=== PATIENT | female | born 1995 | race Caucasian/White ===

== ENCOUNTER 2016-10-15 23:10 | Emergency (ER) | payer SELFPAY ==
--- NOTE | 2016-10-15 23:50 | PDOC ---
History of Present Illness - General History Source: Patient Exam Limitations: No Limitations - History of Present Illness Initial Comments: 10/16/16 00:11 The patient is a 21 year old female with a significant past medical history of asthma, presenting to the Emergency Department with rash to upper body for three days. The patient reports that three days ago she noticed a red rash to her chest and shoulders, which has spread to her sides, back, and thighs over the past three days. She describes the rash as itchy, but not warm or raised. She admits that her boyfriend does not have a rash. She denies previously having similar symptoms. She denies using any new skin or beauty products. The patient denies fever, chills, and cough. Patient denies nausea, vomiting, and diarrhea. Patient denies palpitations, chest pain, or shortness of breath. <Mellissa Burrows - Last Filed: 10/16/16 00:19> <Jing Hoffmann - Last Filed: 10/16/16 00:34> - General Chief Complaint: Rash Stated Complaint: HEADACHE,RASH Time Seen by Provider: 10/15/16 23:44 Past History <Mellissa Burrows - Last Filed: 10/16/16 00:19> - Past Medical History Asthma: Yes - Reproductive History (#): 1 Para: 0 - Immunization History Immunization Up to Date: Yes - Psycho/Social/Smoking Cessation Hx Suicidal Ideation: No Smoking History: Never smoked Have you smoked in the past 12 months: No Information on smoking cessation initiated: No Hx Alcohol Use: No Drug/Substance Use Hx: No Substance Use Type: None <Jing Hoffmann - Last Filed: 10/16/16 00:34> - Past Medical History Allergies/Adverse Reactions: Allergies Allergy/AdvReac Type Severity Reaction Status Date / Time No Known Allergies Allergy Verified 10/15/16 23:47 Home Medications: Ambulatory Orders NK [No Known Home Medication] 05/14/15 Review of Systems - Review of Systems Able to Perform ROS?: Yes Comments:: 10/16/16 00:12 GENERAL/CONSTITUTIONAL: No fever or chills. No weakness. HEAD, EYES, EARS, NOSE AND THROAT: No change in vision. No ear pain or discharge. No sore throat. CARDIOVASCULAR: No chest pain or shortness of breath. RESPIRATORY: No cough, wheezing, or hemoptysis. GASTROINTESTINAL: No nausea, vomiting, diarrhea or constipation. GENITOURINARY: No dysuria, frequency, or change in urination. MUSCULOSKELETAL: No joint or muscle swelling or pain. No neck or back pain. SKIN: + red rash to chest, back and sides. NEUROLOGIC: No headache, vertigo, loss of consciousness, or change in strength/ sensation. ENDOCRINE: No increased thirst. No abnormal weight change. HEMATOLOGIC/LYMPHATIC: No anemia, easy bleeding, or history of blood clots. ALLERGIC/IMMUNOLOGIC: No hives or skin allergy. <Mellissa Burrows - Last Filed: 10/16/16 00:19> *Physical Exam - Vital Signs Last Vital Signs Temp Pulse Resp BP Pulse Ox 97.8 F 89 20 105/67 98 10/15/16 23:48 10/15/16 23:48 10/15/16 23:48 10/15/16 23:48 10/15/16 23:48 - Physical Exam Comments: 10/16/16 00:19 GENERAL: Awake, alert, and fully oriented, in no acute distress HEAD: No signs of trauma EYES: PERRLA, EOMI, sclera anicteric, conjunctiva clear ENT: Auricles normal inspection, hearing grossly normal, nares patent, oropharynx clear without exudates. Moist mucosa NECK: Normal ROM, supple, no lymphadenopathy, JVD, or masses EXTREMITIES: Normal range of motion, no edema. No clubbing or cyanosis. No cords, erythema, or tenderness NEUROLOGICAL: Cranial nerves II through XII grossly intact. Normal speech, normal gait SKIN: Small red subcentimeter patches in a martinez tree distribution to upper body. Warm, Dry, normal turgor, no lesions noted. <Mellissa Burrows - Last Filed: 10/16/16 00:19> - Vital Signs Last Vital Signs Temp Pulse Resp BP Pulse Ox 97.8 F 89 20 105/67 98 10/15/16 23:48 10/15/16 23:48 10/15/16 23:48 10/15/16 23:48 10/15/16 23:48 <Jing Hoffmann - Last Filed: 10/16/16 00:34> Medical Decision Making - Medical Decision Making 10/16/16 00:33 Pt comes with trunk rash x 2 days. Now spreading to her thighs. Itchy, but not hives and not infected. Looks like pityriasis rosea. Follow with PMD. <Jing Hoffmann - Last Filed: 10/16/16 00:34> *DC/Admit/Observation/Transfer - Attestations Scribe Attestion: 10/16/16 00:22 Documentation prepared by Mellissa Burrows, acting as medical coding instructor for Jing Hoffmann MD. <Mellissa Burrows - Last Filed: 10/16/16 00:19> - Discharge Dispostion Admit: No <Jing Hoffmann - Last Filed: 10/16/16 00:34> Diagnosis at time of Disposition: Pityriasis rosea - Discharge Dispostion Disposition: HOME Condition at time of disposition: Stable - Patient Instructions Printed Discharge Instructions: DI for Pityriasis Rosea
[2016-10-16 00:07] VITALS: BP 105/67; PULSE 89; TEMP 97.8; BMI 19.3
== END 2016-10-16 00:42 | disposition home or self-care (01) ==
LOC: JER 23:10
DX: L42 Pityriasis rosea (principal)
CPT/HCPCS: 99281-25

== ENCOUNTER 2017-01-23 10:31 | Emergency (ER) | payer OTHER ==
[2017-01-23 10:36] VITALS: BMI 19.3
[2017-01-23] MEDS ORDERED: ACETAMINOPHEN 500 MG TABLET (FP) PO ONE (10:53)
[2017-01-23 10:58] LABS: URINE APPEARANCE SLCLOUDY; URINE BILIRUBIN NEGATIVE (NEGATIVE); URINE BLOOD 1+ (NEGATIVE); URINE COLOR YELLOW; URINE GLUCOSE (UA) NEGATIVE (NEGATIVE); URINE KETONE TRACE (NEGATIVE); URINE LEUK ESTERASE 2+ (NEGATIVE); URINE NITRITE NEGATIVE (NEGATIVE); URINE PROTEIN 1+ (NEGATIVE); URINE UROBILINOGEN 2.0 E.U/dl E.U./dl (0.2-1.0)
[2017-01-23] MEDS ORDERED: ACETAMINOPHEN 325 MG TABLET (FP) ONE (11:01)
[2017-01-23 11:08] LABS: URINE MUCUS RARE; URINE RBC 32 /hpf (0-3); URINE WBC 121 /hpf (3-5)
[2017-01-23 11:15] LABS: BASOPHIL 0.3 % (0-2.0); EOSINOPHIL 0.8 % (0-4.5); MCH 29.6 pg (25.7-33.7); MCHC 33.4 g/dl (32.0-36.0); MEAN CELL VOLUME 88.8 fl (80-96); MEAN PLT VOLUME 7.8 fl (7.5-11.1); NEUTROPHILS 70.6 % (42.8-82.8); PLATELET COUNT 209 K/MM3 (134-434); RDW 13.4 % (11.6-15.6); WHITE BLOOD COUNT 6.3 K/mm3 (4.0-10.0)
[2017-01-23 11:38] LABS: ALBUMIN 3.9 g/dl (3.4-5.0); ALK PHOS 57 U/L (45-117); ANION GAP 6 (8-16); BILIRUBIN,TOTAL 0.6 mg/dL (0.2-1.0); CALCIUM 8.7 mg/dL (8.5-10.1); CO2 30 mmol/L (21-32); CREATININE 0.5 mg/dL (0.55-1.02); GLUCOSE,RANDOM 87 mg/dL (74-106); SGOT/AST 20 U/L (15-37); SGPT/ALT 30 U/L (12-78); TOT PROT 7.5 g/dl (6.4-8.2)
--- NOTE | 2017-01-23 11:57 | PDOC ---
History of Present Illness - General Chief Complaint: Urinary Problem Stated Complaint: r/o pyelonephritis Time Seen by Provider: 01/23/17 10:37 History Source: Patient Exam Limitations: No Limitations - History of Present Illness Travel History: No Initial Comments: 01/23/17 10:50 21-year-old female present to the ED with complaints of 4 days of suprapubic pressure and urinary frequency with without fever but states today he felt pain radiating now to her right flank area associated with chills. Patient denies history of UTIs, vaginal discharge, irregular menses, or recent illness. Patient states no medical history and did not seek medical care for the symptoms above. Patient states LMP was approximately 2 weeks ago. Timing/Duration: reports: getting worse Quality: reports: moderate, fullness Abdominal Pain Onset Location: reports: suprapubic, flank (rt) Pain Radiation: reports: no radiation Activities at Onset: reports: none Aggravating Factors: improves with: None Alleviating Factors: improves with: None Past History - Past Medical History Allergies/Adverse Reactions: Allergies Allergy/AdvReac Type Severity Reaction Status Date / Time No Known Allergies Allergy Verified 01/23/17 10:32 Home Medications: Ambulatory Orders NK [No Known Home Medication] 05/14/15 Asthma: Yes Other medical history: cerbral palsy - Reproductive History (#): 1 Para: 0 - Immunization History Immunization Up to Date: Yes - Psycho/Social/Smoking Cessation Hx Anxiety: No Suicidal Ideation: No Smoking History: Never smoked Have you smoked in the past 12 months: No Information on smoking cessation initiated: No Hx Alcohol Use: No Drug/Substance Use Hx: No Substance Use Type: None Review of Systems - Review of Systems Able to Perform ROS?: No Is the patient limited Ukrainian proficient: No Constitutional: Yes: Chills HEENTM: No: Symptoms Reported Respiratory: No: Symptoms reported Cardiac (ROS): No: Symptoms Reported ABD/GI: Yes: Abdominal cramping : Yes: Dysuria, Flank Pain Musculoskeletal: No: Symptoms Reported Integumentary: No: Symptoms Reported Neurological: No: Headache *Physical Exam - Vital Signs Last Vital Signs Temp Pulse Resp BP Pulse Ox 98.4 F 90 18 101/64 100 01/23/17 10:33 01/23/17 10:33 01/23/17 10:33 01/23/17 10:33 01/23/17 10:33 - Physical Exam General Appearance: Yes: Nourished, Appropriately Dressed. No: Apparent Distress Respiratory/Chest: positive: Lungs Clear, Normal Breath Sounds. negative: Respiratory Distress, Accessory Muscle Use Cardiovascular: positive: Regular Rhythm, Regular Rate. negative: Murmur Female Pelvic Exam: positive: normal external exam Gastrointestinal/Abdominal: positive: Normal Bowel Sounds, Soft, Tenderness ( midsuprapubic and rt cva). negative: Distended Musculoskeletal: positive: CVA Tenderness (R) Extremity: positive: Normal Capillary Refill Integumentary: positive: Normal Color, Warm, Moist Neurologic: positive: Motor Strength 5/5 (ambulatory) ED Treatment Course - LABORATORY CBC & Chemistry Diagram: 01/23/17 11:09 01/23/17 11:09 - ADDITIONAL ORDERS Additional order review: Laboratory Results 01/23/17 01/23/17 11:09 10:41 Sodium 141 Potassium 3.9 Chloride 105 Carbon Dioxide 30 Anion Gap 6 L BUN 8 Creatinine 0.5 L Creat Clearance w eGFR > 60 Random Glucose 87 D Calcium 8.7 Total Bilirubin 0.6 D AST 20 ALT 30 Alkaline Phosphatase 57 Total Protein 7.5 Albumin 3.9 Urine Color Yellow Urine Appearance Slcloudy Urine pH 6.0 Urine Protein 1+ H Urine Glucose (UA) Negative Urine Ketones Trace H Urine Blood 1+ H Urine Nitrite Negative Urine Bilirubin Negative Urine Urobilinogen 2.0 e.u/dl H Ur Leukocyte Esterase 2+ H Urine RBC 32 Urine WBC 121 Ur Epithelial Cells Few Urine Mucus Rare Urine HCG, Qual Negative 01/23/17 11:09 RBC 4.42 MCV 88.8 MCHC 33.4 RDW 13.4 MPV 7.8 Neutrophils % 70.6 D Lymphocytes % 18.4 D Monocytes % 9.9 Eosinophils % 0.8 Basophils % 0.3 - RADIOLOGY Radiology Studies Ordered: Category Date Time Status KIDNEY / RENAL US [US] Stat Ultrasound 01/23/17 10:53 Completed - Medications Given in the ED: ED Medications Discontinued Medications Generic Name Dose Route Start Last Admin Trade Name Freq PRN Reason Stop Dose Admin Acetaminophen 975 mg 01/23/17 10:53 01/23/17 11:13 Tylenol - PO 01/23/17 10:54 975 mg ONCE ONE Administration Medical Decision Making - Medical Decision Making 01/23/17 10:58 Patient with chills, urinary frequency and dysuria along with flank pain. Pt concerning for pyelonephritis. Patient ordered for CBC, comp, urinalysis urine , Tylenol, and kidney ultrasound 01/23/17 11:59 Laboratory Tests 11/01/15 01/23/17 01/23/17 15:57 10:41 11:09 WBC 6.3 Hgb 13.1 Hct 39.3 Plt Count 209 Sodium Potassium Chloride Carbon Dioxide Anion Gap BUN Creatinine Random Glucose AST ALT Urine Protein 1+ H Urine Ketones Trace H Urine Blood 1+ H Urine Nitrite Negative Urine Urobilinogen 2.0 e.u/dl H Ur Leukocyte Esterase 2+ H Urine WBC 121 Urine HCG, Qual Negative Blood Type B POSITIVE Antibody Screen Negative 01/23/17 11:09 WBC Hgb Hct Plt Count Sodium 141 Potassium 3.9 Chloride 105 Carbon Dioxide 30 Anion Gap 6 L BUN 8 Creatinine 0.5 L Random Glucose 87 D AST 20 ALT 30 Urine Protein Urine Ketones Urine Blood Urine Nitrite Urine Urobilinogen Ur Leukocyte Esterase Urine WBC Urine HCG, Qual Blood Type Antibody Screen Ultrasound shows no hydronephrosis or acute findings. Patient will be discharged home with Bactrim. *DC/Admit/Observation/Transfer Diagnosis at time of Disposition: Pyelonephritis - Discharge Dispostion Disposition: HOME Condition at time of disposition: Good - Patient Instructions Printed Discharge Instructions: DI for Kidney Infection Additional Instructions: Please take medication until completed. Please drink plenty of fluids. Please take Tylenol for discomfort or fever. If symptoms do not improve after completion of antibiotics or worsen during the course please return to the ED.
[2017-01-23 12:19] VITALS: BP 103/56; PULSE 70; TEMP 98.7
== END 2017-01-23 12:20 | disposition home or self-care (01) ==
LOC: JER 10:31
DX: N12 Tubulo-interstitial nephritis, not specified as acute or chronic (principal); G80.9 Cerebral palsy, unspecified
CPT/HCPCS: 36415; 76775-TC; 80053; 81003; 81015; 84703; 85025; 87086; 87186; 99283-25

== ENCOUNTER 2017-01-24 08:50 | Emergency (ER) | payer OTHER ==
[2017-01-24 08:57] VITALS: TEMP 98.9; BMI 19.3
--- NOTE | 2017-01-24 09:38 | PDOC ---
History of Present Illness - History of Present Illness Initial Comments: 01/24/17 18:46 Pt is a 21-year-old female with no past medical history who presents to the emergency department today complaining of worsening pain. Patient was seen in this ED yesterday and was diagnosed with pyelonephritis. Patient states that she has not taken any pain medication since leaving the department. 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 Patient admits to subjective fevers, back pain, urinary frequency, hematuria. Denies nausea, vomiting, chills, constipation, diarrhea, malaise and weakness. <Amy Saravia - Last Filed: 01/24/17 18:46> <Stacia Mckoy - Last Filed: 01/25/17 10:03> - General Chief Complaint: Urinary Problem Stated Complaint: abd pain REVISIT/ SIDE PAIN Time Seen by Provider: 01/24/17 09:16 Past History - Travel Traveled outside of the country in the last 30 days: No Close contact w/someone who was outside of country & ill: No - Past Medical History Asthma: Yes - Reproductive History (#): 1 Para: 0 - Immunization History Immunization Up to Date: Yes - Psycho/Social/Smoking Cessation Hx Anxiety: No Suicidal Ideation: No Smoking History: Never smoked Have you smoked in the past 12 months: No Information on smoking cessation initiated: No Hx Alcohol Use: No Drug/Substance Use Hx: No Substance Use Type: None <Amy Saravia - Last Filed: 01/24/17 18:46> <Stacia Mckoy - Last Filed: 01/25/17 10:03> - Past Medical History Allergies/Adverse Reactions: Allergies Allergy/AdvReac Type Severity Reaction Status Date / Time No Known Allergies Allergy Verified 01/24/17 08:54 Home Medications: Ambulatory Orders Sulfamethoxazole/Trimethoprim [Bactrim Ds -] 1 tab PO DAILY #28 tablet 01/23/17 Acetaminophen [Tylenol] 325 mg PO Q4HWA #24 tablet 01/24/17 Review of Systems - Review of Systems Constitutional: Yes: Fever. No: Chills, Malaise, Weakness ABD/GI: No: Diarrhea, Nausea, Vomiting : Yes: Burning, Dysuria, Frequency, Hematuria. No: Discharge, Flank Pain All Other Systems: Reviewed and Negative <RaniSandraAmy - Last Filed: 01/24/17 18:46> *Physical Exam - Vital Signs Last Vital Signs Temp Pulse Resp BP Pulse Ox 98.9 F 92 H 18 98/64 100 01/24/17 08:54 01/24/17 08:54 01/24/17 08:54 01/24/17 08:54 01/24/17 08:54 - Physical Exam General Appearance: Yes: Nourished, Appropriately Dressed, Mild Distress ( holding low back.), Other (sitting on exam bed, breathing easily, AAOx3) Respiratory/Chest: positive: Lungs Clear, Normal Breath Sounds. negative: Respiratory Distress, Accessory Muscle Use Cardiovascular: positive: Regular Rhythm, Regular Rate, S1, S2 (present). negative: Murmur Gastrointestinal/Abdominal: positive: Normal Bowel Sounds, Flat, Soft. negative : Tender, Organomegaly Musculoskeletal: positive: CVA Tenderness (R), CVA Tenderness (L) (worse than right) Integumentary: positive: Normal Color, Dry, Warm Neurologic: positive: kiln setter II-XII NML intact, Fully Oriented, Alert, Normal Mood/ Affect, Normal Response, Motor Strength 5/5 <JuanAmy hardy - Last Filed: 01/24/17 18:46> - Vital Signs Last Vital Signs Temp Pulse Resp BP Pulse Ox 98.9 F 90 20 100/78 100 01/24/17 08:54 01/24/17 12:33 01/24/17 12:33 01/24/17 12:33 01/24/17 12:33 <Stacia Mckoy - Last Filed: 01/25/17 10:03> ED Treatment Course - Medications Given in the ED: ED Medications Discontinued Medications Generic Name Dose Route Start Last Admin Trade Name Freq PRN Reason Stop Dose Admin Acetaminophen 650 mg 01/24/17 09:40 01/24/17 09:48 Tylenol - PO 01/24/17 09:41 650 mg ONCE ONE Administration <Stacia Mckoy - Last Filed: 01/25/17 10:03> Medical Decision Making - Medical Decision Making 01/24/17 09:09 Pt is a 21-year-old female with no past medical history who presents to the emergency department today complaining of worsening pain. Patient was seen in this ED yesterday and was diagnosed with pyelonephritis. Since patient is not taking pain medications since yesterday we will give her some Tylenol and see how she does. Patient's prescription of Bactrim states she is only taking it once a day but she was dispensed 20 pills. We'll confirm with pharmacy to to see the accurate prescription. Patient should be taking Bactrim twice daily for 14 days. We'll give patient fluids and reevaluate. 1. Repeat UA 01/24/17 09:54 Repeat UA is unchanged from yesterday. Confirmed with pharmacy the patient only got 14 pills and is taking the medication once daily. Will double his prescriptions that she is taking it twice daily. Reassured the patient that she will not feel well the next couple of days by she should start to get better within the next 48 hours. Instructed patient to take Tylenol for pain every 4-6 hours not to exceed 4 g of Tylenol per day. Patient feels better after fluids and Tylenol we'll discharge home at this time. All questions were answered and patient understands all discharge instructions. <Amy Saravia - Last Filed: 01/24/17 18:46> *DC/Admit/Observation/Transfer - Discharge Dispostion Admit: No <Amy Saravia - Last Filed: 01/24/17 18:46> - Attestations Physician Attestion: I reviewed the case with the mid-level practitioner and agree with the mid- level practitioner's assessment, diagnosis and disposition. <Stacia Mckoy - Last Filed: 01/25/17 10:03> Diagnosis at time of Disposition: Pyelonephritis - Discharge Dispostion Disposition: HOME Condition at time of disposition: Improved - Prescriptions Prescriptions: Acetaminophen [Tylenol] 325 mg PO Q4HWA #24 tablet - Patient Instructions Printed Discharge Instructions: DI for Urinary Tract Infection (UTI) Additional Instructions: You have a kidney infection caused by a urinary tract infection. Continue taking your antibiotics as prescribed. You should be taking 1 bactrium tablet DS (trimethoprim/sulfamethoxazole) every 12 hours or twice a day. Drink plenty of fluids. Water will help to flush the infection. Take Tylenol as needed for pain no more than 4000mg per day. Finish your antibiotics even if you are feeling better. Return to the ED if you have worsening pain not made better by tylenol, high fevers, cannot pass urine or if there are any changes in your symptoms.
[2017-01-24] MEDS ORDERED: ACETAMINOPHEN 325 MG TABLET (FP) PO ONE (09:40)
[2017-01-24] MEDS ORDERED: ACETAMINOPHEN 325 MG TABLET (FP) ONE (09:49)
[2017-01-24 11:07] LABS: URINE APPEARANCE SLCLOUDY; URINE BILIRUBIN NEGATIVE (NEGATIVE); URINE COLOR YELLOW; URINE GLUCOSE (UA) NEGATIVE (NEGATIVE); URINE KETONE 1+ (NEGATIVE); URINE NITRITE NEGATIVE (NEGATIVE); URINE PROTEIN NEGATIVE (NEGATIVE); URINE UROBILINOGEN 2.0 E.U/dl E.U./dl (0.2-1.0)
[2017-01-24 11:08] LABS: URINE BLOOD 3+ (NEGATIVE); URINE LEUK ESTERASE 2+ (NEGATIVE)
[2017-01-24 11:29] LABS: URINE MUCUS RARE; URINE RBC 121 /hpf (0-3); URINE WBC 213 /hpf (3-5)
[2017-01-24 12:35] VITALS: BP 100/78; PULSE 90
== END 2017-01-24 12:35 | disposition home or self-care (01) ==
LOC: JER 08:50
DX: N12 Tubulo-interstitial nephritis, not specified as acute or chronic (principal)
CPT/HCPCS: 81003; 81015; 84703; 99281-25

== ENCOUNTER 2017-02-01 02:01 | Emergency (ER) | payer OTHER ==
[2017-02-01 02:24] VITALS: BP 100/67; PULSE 77; TEMP 98.3; BMI 19.3
--- NOTE | 2017-02-01 02:25 | PDOC ---
Attending Attestation - Resident Resident Name: Stephanie Goel - ED Attending Attestation I have performed the following: I have examined & evaluated the patient, The case was reviewed & discussed with the resident, I agree w/resident's findings & plan, Exceptions are as noted - HPI HPI: 21 yo F no significant PMH presents with B/L flank pain. She was recently treated for UTI, has been on Bactrim for 1 week. She denies fever, chills. She states that her dysuria has resolved, but she still has blank pain that is worsening, not resolving. No vomiting. - Physicial Exam PE: GENERAL: Awake, alert, and fully oriented, in no acute distress. Appears uncomfortable. HEAD: No signs of trauma EYES: PERRLA, EOMI, sclera anicteric, conjunctiva clear ENT: Auricles normal inspection, hearing grossly normal, nares patent, oropharynx clear without exudates. Dry mucosa NECK: Normal ROM, supple, no lymphadenopathy, JVD, or masses LUNGS: Breath sounds equal, clear to auscultation bilaterally. No wheezes, and no crackles HEART: Regular rate and rhythm, normal S1 and S2, no murmurs, rubs or gallops ABDOMEN: Soft, +suprapubic tenderness with guarding. Normoactive bowel sounds. No rebound. No masses. +B/L CVAT. EXTREMITIES: Normal range of motion, no edema. No clubbing or cyanosis. No cords, erythema, or tenderness NEUROLOGICAL: Cranial nerves II through XII grossly intact. Normal speech, normal gait SKIN: Warm, Dry, normal turgor, no rashes or lesions noted. - Medical Decision Making Pt with recent treatment for UTI, now presents stating her dysuria has improved , but she still has B/L flank pain that is worsening. She has CVAT B/L with suprapubic tenderness. Either the infection was incompletely treated with the bactrim, or she may possibly have a nidus for infection (possibly a stone). Will obtain repeat UA/UCx, consider spiral CT.
[2017-02-01] MEDS ORDERED: LEVOFLOXACIN 750 MG IVPB 150 ML IVPB ONE ×2 (02:48→03:21)
[2017-02-01] MEDS ORDERED: KETOROLAC TROMETHAMINE 15 MG/ML VIAL IVPUSH ONE ×2 (03:05→05:02)
--- NOTE | 2017-02-01 03:05 | PDOC ---
History of Present Illness - General Chief Complaint: Pain, Acute Stated Complaint: PAIN/CHEST/RIGHT SIDED Time Seen by Provider: 02/01/17 02:05 - History of Present Illness Initial Comments: Healthy 21 year old female presenting with repeat episode of bilateral flank pain. She was in the ED one week ago with fever, suprapubic pain, and dysuria and diagnosed with pyelonephritis. She has been taking her Bactrim for the past 7 days BID with resolution of all symptoms except for with worsening of her bilateral flank pain. She has some nausea but no vomiting. Denies current fevers , chills, diarrhea, chest pain or other sick symptoms. 02/01/17 03:00 Past History - Past Medical History Allergies/Adverse Reactions: Allergies Allergy/AdvReac Type Severity Reaction Status Date / Time No Known Allergies Allergy Verified 02/01/17 02:08 Home Medications: Ambulatory Orders Sulfamethoxazole/Trimethoprim [Bactrim Ds -] 1 tab PO DAILY #28 tablet 01/23/17 Acetaminophen [Tylenol] 325 mg PO Q4HWA #24 tablet 01/24/17 Ibuprofen 600 mg PO Q6H PRN #30 tablet 02/01/17 Levofloxacin [Levaquin] 750 mg PO DAILY #4 tab 02/01/17 Asthma: Yes - Reproductive History (#): 1 Para: 0 - Immunization History Immunization Up to Date: Yes - Psycho/Social/Smoking Cessation Hx Anxiety: No Suicidal Ideation: No Smoking History: Never smoked Have you smoked in the past 12 months: No Hx Alcohol Use: No Drug/Substance Use Hx: No Substance Use Type: None Review of Systems - Review of Systems Constitutional: No: Chills, Diaphoresis, Fever, Loss of Appetite HEENTM: No: Blurred Vision, Recent change in vision Respiratory: No: Cough, Orthopnea, Shortness of Breath, SOB with Exertion Cardiac (ROS): No: Chest Pain, Edema, Irregular Heart Rate ABD/GI: Yes: Nausea. No: Constipated, Diarrhea, Poor Appetite, Vomiting, Indigestion : Yes: Flank Pain. No: Dysuria, Discharge, Hematuria, Incontinence, Urgency Musculoskeletal: Yes: Back Pain Neurological: No: Numbness, Paresthesia *Physical Exam - Vital Signs Last Vital Signs Temp Pulse Resp BP Pulse Ox 98.3 F 77 18 100/67 100 02/01/17 02:07 02/01/17 02:07 02/01/17 02:07 02/01/17 02:07 02/01/17 02:07 - Physical Exam General Appearance: Yes: Nourished, Appropriately Dressed, Mild Distress HEENT: positive: EOMI, ISAIAS, Normal Voice Neck: positive: Trachea midline. negative: Tender Respiratory/Chest: positive: Lungs Clear, Normal Breath Sounds. negative: Chest Tender, Respiratory Distress, Accessory Muscle Use Cardiovascular: positive: Regular Rhythm, Regular Rate, S1, S2, Edema. negative : JVD, Murmur Gastrointestinal/Abdominal: positive: Normal Bowel Sounds, Flat, Soft. negative : Tender, Organomegaly, Pulsatile Mass Musculoskeletal: positive: Normal Inspection Extremity: positive: Normal Capillary Refill, Normal Inspection Integumentary: positive: Normal Color, Dry, Warm Neurologic: positive: Fully Oriented, Alert, Normal Mood/Affect Medical Decision Making - Medical Decision Making Healthy 21 yo F with recent presentation for pyelonephritis treated with one week of Bactrim DS BID with remission of all symptoms except for worsening of bilateral flank pain. Most concerning is possible complicated pyelopnephritis or nephrolithiasis or combination of both. Will get UPreg, UA with culture and give 1 L NS with [address]. Will [address] scan after UPreg and UA return. 02/01/17 03:13 02/01/17 05:07 CT Abdomen/ Pelvis negative for any acute pathology or stone. Will redose Toradol 15 and send patient home with 600 Ibuprofen + Levaquin 750 x 4 more days. 02/01/17 05:44 Patient sleeping after Toradol 15 and ready to go home. *DC/Admit/Observation/Transfer Diagnosis at time of Disposition: Pyelonephritis - Discharge Dispostion Disposition: HOME Condition at time of disposition: Improved Admit: No - Prescriptions Prescriptions: Ibuprofen 600 mg PO Q6H PRN #30 tablet PRN Reason: Pain Levofloxacin [Levaquin] 750 mg PO DAILY #4 tab - Patient Instructions Additional Instructions: You were seen in the ED for pain in your back on both sides. We did not see any stones or other issues on your abdominal CT, we believe that this is probably a remaining infection of your kidneys. We have changed your antibiotics and given you some pain medication. Please take them both as prescribed and return if your pain does not get better in the next few days or if you get fevers, chills , nausea, vomiting, or other new symptoms. - Post Discharge Activity Work/School Note: Back to Work - Attestations Physician Attestion: 02/01/17 05:46 I, Dr. Stephanie Goel, attest that this document has been prepared under my direction and personally reviewed by me in its entirety. I further attest, that it accurately reflects all work, treatment, procedures and medical decision -making performed by me.
[2017-02-01] MEDS ORDERED: SODIUM CHLORIDE 0.9% 1000 ML INFUS.BAG IV ONE (03:11)
[2017-02-01] MEDS ORDERED: KETOROLAC TROMETHAMINE 15 MG/ML VIAL ONE ×2 (03:21→05:21)
[2017-02-01 03:48] LABS: URINE APPEARANCE CLEAR; URINE BILIRUBIN NEGATIVE (NEGATIVE); URINE BLOOD NEGATIVE (NEGATIVE); URINE COLOR STRAW; URINE GLUCOSE (UA) NEGATIVE (NEGATIVE); URINE KETONE NEGATIVE (NEGATIVE); URINE NITRITE NEGATIVE (NEGATIVE); URINE PROTEIN NEGATIVE (NEGATIVE); URINE UROBILINOGEN NEGATIVE mg/dL (0.2-1.0)
[2017-02-01 03:49] LABS: URINE LEUK ESTERASE TRACE (NEGATIVE)
[2017-02-01 03:50] LABS: URINE MUCUS RARE; URINE RBC 1 /hpf (0-3); URINE WBC 1 /hpf (3-5)
== END 2017-02-01 06:09 | disposition home or self-care (01) ==
LOC: JER 02:01
PROC: 3E03329 Introduction of Other Anti-infective into Peripheral Vein, Percutaneous Approach (ICD-10-PCS; principal; 2017-02-01)
PROC: 3E0333Z Introduction of Anti-inflammatory into Peripheral Vein, Percutaneous Approach (ICD-10-PCS; 2017-02-01)
PROC: 3E0333Z Introduction of Anti-inflammatory into Peripheral Vein, Percutaneous Approach (ICD-10-PCS; 2017-02-01)
DX: N12 Tubulo-interstitial nephritis, not specified as acute or chronic (principal)
CPT/HCPCS: 74176-TC; 81003; 81015; 84703; 87086; 96365; 96375; 99282-25

== ENCOUNTER 2018-05-14 03:33 | Emergency (ER) | payer OTHER ==
--- NOTE | 2018-05-14 03:48 | PDOC ---
History of Present Illness - General Stated Complaint: POSSIBLE MISCARRIAGE/17 WKS Time Seen by Provider: 05/14/18 03:47 History Source: Patient Exam Limitations: No Limitations - History of Present Illness Initial Comments: 05/14/18 03:47 Best Contact:[phone] PCP: Donal Dougherty Pmhx:0 Pshx:0 Allergies:nkda FH:0 Social Hx: Cigarettes/ 0 Alcohol/ 0 Drugs/0 LMP:04/19/2018 ( 2016 miscarriage ~8 weeks) 23-year-old female presents to the ER complaining of vaginal spotting with left- sided pelvic pain 2 hours without fever, chills, nausea/vomiting, headache, dizziness, lightheadedness, chest pain, shortness of breath, back pains, urinary symptoms: Frequency/urgency/hesitancy, hematuria. Patient last had her ultrasound 05/02/2018. Patient states everything was fine baby's heart rate was in the 160s Past History - Past Medical History Allergies/Adverse Reactions: Allergies Allergy/AdvReac Type Severity Reaction Status Date / Time No Known Allergies Allergy Verified 05/14/18 04:15 Home Medications: Ambulatory Orders Ondansetron HCl [Zofran] 4 mg PO PRN #20 tablet 03/06/18 Asthma: Yes COPD: No - Reproductive History (#): 1 Para: 0 - Immunization History Immunization Up to Date: Yes - Suicide/Smoking/Psychosocial Hx Smoking History: Never smoked Have you smoked in the past 12 months: No Hx Alcohol Use: No Drug/Substance Use Hx: No Substance Use Type: None Review of Systems - Review of Systems Able to Perform ROS?: Yes Comments:: 05/14/18 03:48 CONSTITUTIONAL: Absent: fever, chills, diaphoresis, generalized weakness, malaise, loss of appetite HEENT: Absent: rhinorrhea, nasal congestion, throat pain, throat swelling, difficulty swallowing, mouth swelling, ear pain, eye pain, visual Changes CARDIOVASCULAR: Absent: chest pain, loss of consciousness, palpitations, irregular heart rate, peripheral edema RESPIRATORY: Absent: cough, shortness of breath, dyspnea with exertion, orthopnea, wheezing, stridor, hemoptysis GASTROINTESTINAL: Absent: abdominal pain, abdominal distension, nausea, vomiting, diarrhea, constipation, melena, hematochezia GENITOURINARY: Absent: dysuria, frequency, urgency, hesitancy, hematuria, flank pain, genital pain MUSCULOSKELETAL: Absent: myalgia, arthralgia, joint swelling SKIN: Absent: rash, itching, pallor HEMATOLOGIC/IMMUNOLOGIC: Absent: easy bleeding, easy bruising, lymphadenopathy, frequent infections ENDOCRINE: Absent: unexplained weight gain, unexplained weight loss, heat intolerance, cold intolerance NEUROLOGIC: Absent: headache, focal weakness or paresthesias, dizziness, unsteady gait, seizure, mental status changes, bladder or bowel incontinence PSYCHIATRIC: Absent: anxiety, depression, suicidal or homicidal ideation, hallucinations. Is the patient limited Lithuanian proficient: No *Physical Exam - Physical Exam Comments: 05/14/18 03:48 GENERAL: Well developed, well nourished. Awake and alert. No acute distress. HEENT: Normocephalic, atraumatic. PERRLA, EOMI. No conjunctival pallor. Sclera are non- icteric. Moist mucous membranes. Oropharynx is clear. NECK: Supple. Full ROM. No JVD. Carotid pulses 2+ and symmetric, without bruits. No thyromegaly. No lymphadenopathy. CARDIOVASCULAR: Regular rate and rhythm. No murmurs, rubs, or gallops. Distal pulses are 2+ and symmetric. PULMONARY: No evidence of respiratory distress. Lungs clear to auscultation bilaterally. No wheezing, rales or rhonchi. ABDOMINAL: Soft. Non-tender. Non-distended. No rebound or guarding. No organomegaly. Normoactive bowel sounds. MUSCULOSKELETAL Normal range of motion at all joints. No bony deformities or tenderness. No CVA tenderness. EXTREMITIES: No cyanosis. No clubbing. No edema. No calf tenderness. SKIN: Warm and dry. Normal capillary refill. No rashes. No jaundice. NEUROLOGICAL: Alert, awake, appropriate. Cranial nerves 2-12 intact. No deficits to light touch and temperature in face, upper extremities and lower extremities. No motor deficits in the in face, upper extremities and lower extremities. Normoreflexic in the upper and lower extremities. Normal speech. Toes are down- going bilaterally. Gait is normal without ataxia. PSYCHIATRIC: Cooperative. Good eye contact. Appropriate mood and affect. 05/14/18 04:21 Pelvic: External genitalia normal without lesions. Vaginal vault is clear without blood or discharge. Cervix is long and closed. ED Treatment Course - LABORATORY CBC & Chemistry Diagram: 05/14/18 04:09 05/14/18 04:09 - RADIOLOGY Radiograph Interpretation: 05/14/18 06:05 Transvaginal ultrasound Cervix is 3.8 cm in length and closed. There is a live intrauterine with estimated age 17 weeks and 6 days and cephalic presentation. There is an anterior placenta without previa or abruption. Normal amount of amniotic fluid for age. Normal heart rate of 163 bpm. *DC/Admit/Observation/Transfer Diagnosis at time of Disposition: Threatened - Discharge Dispostion Disposition: HOME Condition at time of disposition: Fair Decision to Admit order: No - Referrals Referrals: Apple Klein MD [Staff Physician] - - Patient Instructions Printed Discharge Instructions: DI for Threatened Additional Instructions: Your transvaginal ultrasound this morning shows that your cervix is 3.8 cm in length and closed. There is a live intrauterine with estimated age 17 weeks and 6 days and cephalic presentation. There is an anterior placenta without previa or abruption. Normal amount of amniotic fluid for age. Normal heart rate of 163 bpm. 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
[2018-05-14 04:15] VITALS: BMI 19.8
[2018-05-14 04:34] LABS: BASO % 0.2 % (0-2.0); EOS % 1.5 % (0-4.5); HEMATOCRIT 32.6 % (32.4-45.2); HEMOGLOBIN 11.2 GM/dL (10.7-15.3); LYMPH % 29.7 % (8-40); MCH 30.4 pg (25.7-33.7); MCHC 34.4 g/dl (32.0-36.0); MEAN CELL VOLUME 88.3 fl (80-96); MEAN PLT VOLUME 7.9 fl (7.5-11.1); MONO % 7.5 % (3.8-10.2); NEUT % 61.1 % (42.8-82.8); PLATELET COUNT 248 K/MM3 (134-434); RBC 3.68 M/mm3 (3.60-5.2); RDW 14.1 % (11.6-15.6); WHITE BLOOD COUNT 6.8 K/mm3 (4.0-10.0)
[2018-05-14 04:37] LABS: URINE APPEARANCE CLEAR; URINE BILIRUBIN NEGATIVE (<2.0 mg/dL); URINE COLOR STRAW; URINE GLUCOSE (UA) NEGATIVE (NEGATIVE); URINE KETONE NEGATIVE (NEGATIVE); URINE LEUK ESTERASE 1+ (NEGATIVE); URINE NITRITE NEGATIVE (NEGATIVE); URINE PROTEIN NEGATIVE (NEGATIVE); URINE UROBILINOGEN NEGATIVE mg/dL (0.2-1.0)
[2018-05-14 04:55] LABS: ALBUMIN 3.2 g/dl (3.4-5.0); ALK PHOS 64 U/L (45-117); ANION GAP 7 MMOL/L (8-16); BILIRUBIN,TOTAL 0.2 mg/dL (0.2-1); BLOOD UREA NITROGEN 7 mg/dL (7-18); CALCIUM 8.9 mg/dL (8.5-10.1); CHLORIDE 103 mmol/L (98-107); CO2 26 mmol/L (21-32); CREATININE 0.3 mg/dL (0.55-1.3); GLUCOSE,RANDOM 74 mg/dL (74-106); POTASSIUM 3.7 mmol/L (3.5-5.1); SGOT/AST 22 U/L (15-37); SGPT/ALT 23 U/L (13-61); SODIUM 136 mmol/L (136-145)
[2018-05-14 04:58] LABS: EPI CELLS RARE /HPF (FEW); URINE BACTERIA RARE /hpf (NONE SEEN)
[2018-05-14 05:01] VITALS: BP 110/60; PULSE 82; TEMP 98.1
== END 2018-05-14 06:18 | disposition home or self-care (01) ==
LOC: JER 03:33
DX: O26.892 Other specified pregnancy related conditions, second trimester (principal); O20.0 Threatened abortion; Z3A.17 17 weeks gestation of pregnancy
CPT/HCPCS: 36415; 76815-TC; 80053; 81003; 81015; 84702; 85025; 86850; 86900; 86901; 99283-25

== ENCOUNTER 2018-07-04 18:32 | Emergency (ER) | payer OTHER ==
[2018-07-04 18:53] VITALS: BP 96/60; PULSE 99; TEMP 98.5; BMI 20.9
--- NOTE | 2018-07-04 19:03 | PDOC ---
Rapid Medical Evaluation Chief Complaint: Shortness of Breath Medical Evaluation: Allergies Allergy/AdvReac Type Severity Reaction Status Date / Time No Known Allergies Allergy Verified 07/04/18 18:50 07/04/18 18:52 I have performed a brief in-person evaluation of this patient. The patient presents with a chief complaint of:24 weeks preg, SOB/ wheezing , baby not moving as much today Pertinent physical exam findings: lungs Clear, I have ordered the following: nothing .. will be taken to [facility] for check The patient will proceed to the ED for further evaluation. Discharge Disposition - Diagnosis SOB (shortness of breath) - Referrals - Patient Instructions - Post Discharge Activity
[2018-07-04] MEDS ORDERED: ALBUTEROL SO4 0.083% IH SOL 2.5 MG/3 ML VIAL.NEB. NEB ONE ×2 (20:50→21:06)
[2018-07-04] MEDS ORDERED: SODIUM CHLORIDE 1,000 ML IV STA (20:50)
--- NOTE | 2018-07-04 21:02 | PDOC ---
History of Present Illness - General Chief Complaint: Shortness of Breath Stated Complaint: 24 WEEKS Shortness of Breath Time Seen by Provider: 07/04/18 20:46 History Source: Patient - History of Present Illness Initial Comments: 07/04/18 20:51 23 year old female 24 weeks with history of asthma and "anxiety" reports that when she was walking outside yesterday felt shortness of breath, wheezing and chest tightness denies pleuritic pain now reports slight tightness to chest. did not take a treatment at home. denies vgainal bleeding, NVD, abdominal pain/ cramping. reports decreased movement today 07/04/18 22:28 Past History - Past Medical History Allergies/Adverse Reactions: Allergies Allergy/AdvReac Type Severity Reaction Status Date / Time No Known Allergies Allergy Verified 07/04/18 19:50 Home Medications: Ambulatory Orders Albuterol 0.083% Nebulizer Yolette [Ventolin 0.083% Nebulizer Soln -] 1 neb NEB Q6H PRN #30 vial 07/04/18 Nebulizer [Aeroeclipse II] 1 each MC Q6H #6 each 07/04/18 No122/Iron/Folic Acid [ Multi Tablet] 1 each PO DAILY 07/04/18 Asthma: Yes COPD: No - Reproductive History Is Patient Now?: Yes (#): 1 Para: 0 Therapeutic (s) & number: No Spontaneous : 0 - Immunization History Immunization Up to Date: Yes - Suicide/Smoking/Psychosocial Hx Smoking History: Never smoked Have you smoked in the past 12 months: No Hx Alcohol Use: No Drug/Substance Use Hx: No Substance Use Type: None Review of Systems - Review of Systems Able to Perform ROS?: Yes Is the patient limited Turkmen proficient: No Constitutional: No: Symptoms Reported, See HPI, Chills, Diaphoresis, Fever, Loss of Appetite, Malaise, Night Sweats, Weakness, Weight Stable, Unintentional Wgt. Loss, Unexplained wgt Loss, Other HEENTM: No: Symptoms Reported, See HPI, Eye Pain, Blurred Vision, Tearing, Recent change in vision, Double Vision, Cataracts, Ear Pain, Ocular Prothesis, Ear Discharge, Nose Pain, Nose Congestion, Tinnitus, Nose Bleeding, Hearing Loss , Throat Pain, Throat Swelling, Mouth Pain, Dental Problems, Difficulty Swallowing, Mouth Swelling, Other Respiratory: Yes: Shortness of Breath, Other (chest tightness) *Physical Exam - Vital Signs Last Vital Signs Temp Pulse Resp BP Pulse Ox 98.5 F 99 H 20 96/60 99 07/04/18 18:51 18 18:51 07/04/18 18:51 07/04/18 18:51 07/04/18 19:20 Moderate Sedation - Procedure Monitoring Vital Signs: Procedure Monitoring Vital Signs Temperature 98.5 F 07/04/18 18:51 Pulse Rate 99 H 07/04/18 18:51 Respiratory Rate 20 07/04/18 18:51 Blood Pressure 96/60 07/04/18 18:51 O2 Sat by Pulse Oximetry (%) 99 07/04/18 19:20 ED Treatment Course - LABORATORY CBC & Chemistry Diagram: 07/04/18 21:20 07/04/18 21:20 Medical Decision Making - Medical Decision Making 07/04/18 21:39 patient now feels better after albuterol dose. will await labs. once d/romario in the ED patient to be cleared by Ob. patient reports minimal movements by baby today 07/04/18 22:28 patient was evaluated by L&D nurse doppler done at bedside Heart rate 140- 50bpm patient cleared for d/c by L&D 07/04/18 22:29 *DC/Admit/Observation/Transfer Diagnosis at time of Disposition: Asthma Qualifiers: Asthma severity: mild Asthma persistence: intermittent Asthma complication type : uncomplicated Qualified Code(s): J45.20 - Mild intermittent asthma, uncomplicated Qualifiers: Weeks of gestation: 24 weeks Qualified Code(s): Z3A.24 - 24 weeks gestation of - Discharge Dispostion Disposition: HOME - Prescriptions Prescriptions: Albuterol 0.083% Nebulizer Yolette [Ventolin 0.083% Nebulizer Soln -] 1 neb NEB Q6H PRN #30 vial PRN Reason: Wheezing Nebulizer [Aeroeclipse II] 1 each MC Q6H #6 each - Referrals - Patient Instructions Printed Discharge Instructions: DI for Asthma -- Adult Additional Instructions: use albuterol every 4- 6 hours for wheezing 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 - Post Discharge Activity Forms/Work/School Notes: Back to Work
[2018-07-04 21:29] LABS: BASO % 0.2 % (0-2.0); EOS % 1.2 % (0-4.5); HEMATOCRIT 31.1 % (32.4-45.2); HEMOGLOBIN 11.1 GM/dL (10.7-15.3); LYMPH % 16.1 % (8-40); MCH 31.6 pg (25.7-33.7); MCHC 35.6 g/dl (32.0-36.0); MEAN CELL VOLUME 88.7 fl (80-96); MEAN PLT VOLUME 7.8 fl (7.5-11.1); MONO % 9.5 % (3.8-10.2); PLATELET COUNT 256 K/MM3 (134-434); RBC 3.51 M/mm3 (3.60-5.2); RDW 13.4 % (11.6-15.6); WHITE BLOOD COUNT 11.6 K/mm3 (4.0-10.0)
[2018-07-04 21:49] LABS: URINE APPEARANCE CLEAR; URINE BILIRUBIN NEGATIVE (<2.0 mg/dL); URINE COLOR COLORLESS; URINE GLUCOSE (UA) NEGATIVE (NEGATIVE); URINE KETONE TRACE (NEGATIVE); URINE LEUK ESTERASE NEGATIVE (NEGATIVE); URINE NITRITE NEGATIVE (NEGATIVE); URINE PROTEIN NEGATIVE (NEGATIVE); URINE UROBILINOGEN NEGATIVE mg/dL (0.2-1.0)
[2018-07-04 22:03] LABS: ALBUMIN 2.9 g/dl (3.4-5.0); ALK PHOS 87 U/L (45-117); ANION GAP 7 MMOL/L (8-16); BILIRUBIN,TOTAL 0.3 mg/dL (0.2-1); BLOOD UREA NITROGEN 4 mg/dL (7-18); CHLORIDE 105 mmol/L (98-107); CO2 25 mmol/L (21-32); CREATININE 0.3 mg/dL (0.55-1.3); GLUCOSE,RANDOM 69 mg/dL (74-106); POTASSIUM 3.5 mmol/L (3.5-5.1); SGOT/AST 18 U/L (15-37); SGPT/ALT 13 U/L (13-61); SODIUM 137 mmol/L (136-145); TOT PROT 7.1 g/dl (6.4-8.2)
--- NOTE | 2018-07-05 00:16 | PDOC ---
*Physical Exam - Vital Signs Last Vital Signs Temp Pulse Resp BP Pulse Ox 98.5 F 99 H 20 96/60 99 07/04/18 18:51 07/04/18 18:51 07/04/18 18:51 07/04/18 18:51 07/04/18 19:20 ED Treatment Course - LABORATORY CBC & Chemistry Diagram: 07/04/18 21:20 07/04/18 21:20 - ADDITIONAL ORDERS Additional order review: Laboratory Results 07/04/18 07/04/18 21:30 21:20 Sodium 137 Potassium 3.5 Chloride 105 Carbon Dioxide 25 Anion Gap 7 L BUN 4 L Creatinine 0.3 L Creat Clearance w eGFR > 60 Random Glucose 69 L Calcium 8.0 L Total Bilirubin 0.3 AST 18 ALT 13 Alkaline Phosphatase 87 Total Protein 7.1 Albumin 2.9 L Urine Color Colorless Urine Appearance Clear Urine pH 8.0 D Ur Specific [place] 1.003 L Urine Protein Negative Urine Glucose (UA) Negative Urine Ketones Trace H Urine Blood Negative Urine Nitrite Negative Urine Bilirubin Negative Urine Urobilinogen Negative Ur Leukocyte Esterase Negative 07/04/18 21:20 RBC 3.51 L MCV 88.7 MCHC 35.6 RDW 13.4 MPV 7.8 Neutrophils % 73.0 Lymphocytes % 16.1 D Monocytes % 9.5 Eosinophils % 1.2 Basophils % 0.2 - Medications Given in the ED: ED Medications Discontinued Medications Generic Name Dose Route Start Last Admin Trade Name Freq PRN Reason Stop Dose Admin Albuterol Sulfate 1 amp 07/04/18 20:50 07/04/18 21:25 Ventolin 0.083% Nebulizer Soln - NEB 07/04/18 20:51 1 amp ONCE ONE Administration Sodium Chloride 1,000 mls @ 1,000 mls/hr 07/04/18 20:50 07/04/18 21:30 Normal Saline - IV 07/04/18 21:49 1,000 mls/hr ASDIR STA Administration Medical Decision Making - Medical Decision Making 07/05/18 00:14 I agree w ith the mid level providers's assessment and management of this case. 23 yo female p/w asthma exacerbation that resolved with bronchodilators treatment . doppler reveals FHT 140-150. Pt discharged home *DC/Admit/Observation/Transfer Diagnosis at time of Disposition: Asthma Qualifiers: Asthma severity: mild Asthma persistence: intermittent Asthma complication type : uncomplicated Qualified Code(s): J45.20 - Mild intermittent asthma, uncomplicated Qualifiers: Weeks of gestation: 24 weeks Qualified Code(s): Z3A.24 - 24 weeks gestation of - Discharge Dispostion Disposition: HOME - Prescriptions Prescriptions: Albuterol 0.083% Nebulizer Yolette [Ventolin 0.083% Nebulizer Soln -] 1 neb NEB Q6H PRN #30 vial PRN Reason: Wheezing Nebulizer [Aeroeclipse II] 1 each MC Q6H #6 each - Referrals - Patient Instructions Printed Discharge Instructions: DI for Asthma -- Adult Additional Instructions: use albuterol every 4- 6 hours for wheezing 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 - Post Discharge Activity Forms/Work/School Notes: Back to Work
== END 2018-07-04 23:20 | disposition home or self-care (01) ==
LOC: JER 18:32
PROC: 3E0337Z Introduction of Electrolytic and Water Balance Substance into Peripheral Vein, Percutaneous Approach (ICD-10-PCS; principal; 2018-07-04)
PROC: 3E0F7GC Introduction of Other Therapeutic Substance into Respiratory Tract, Via Natural or Artificial Opening (ICD-10-PCS; 2018-07-04)
DX: O99.512 Diseases of the respiratory system complicating pregnancy, second trimester (principal); J45.20 Mild intermittent asthma, uncomplicated; Z3A.24 24 weeks gestation of pregnancy
CPT/HCPCS: 36415; 80053; 81003; 85025; 87086; 99282-25; J7030

== ENCOUNTER 2018-10-24 01:20 | Inpatient (IN) | payer OTHER ==
--- NOTE | 2018-10-24 01:48 | HP ---
Past Medical History - Admission Chief Complaint: Rupture of membrane History of Present Illness: 23 yo @ 40 weeks gestation, EDC 10/21/18, admitted for rupture of membrane. Upon admission there was gross pooling but cervix was closed. Patient denies any contractions pain. History Source: Patient Limitations to Obtaining History: No Limitations - Past Medical History ...: 1 ...Para: 0 ...EDC by Dates: 10/21/18 ...EDC by Sono: 10/23/18 - Past Surgical History Past Surgical History: Yes: None Hx Myomectomy: No Hx Transabdominal Cerclage: No - Smoking History Smoking history: Never smoked Have you smoked in the past 12 months: No - Alcohol/Substance Use Hx Alcohol Use: No Home Medications - Allergies Allergies/Adverse Reactions: Allergies Allergy/AdvReac Type Severity Reaction Status Date / Time Latex, Natural Rubber Allergy Intermediate Rash Verified 10/13/18 20:35 - Home Medications Home Medications: Ambulatory Orders Albuterol 0.083% Nebulizer Yolette [Ventolin 0.083% Nebulizer Soln -] 1 neb NEB Q6H PRN #30 vial 07/04/18 Nebulizer [Aeroeclipse II] 1 each MC Q6H #6 each 07/04/18 No122/Iron/Folic Acid [ Multi Tablet] 1 each PO DAILY 07/04/18 Family Disease History - Family Disease History Family History: Unremarkable Review of Systems - Review of Systems Constitutional: reports: No Symptoms Eyes: reports: No Symptoms HENT: reports: No Symptoms Neck: reports: No Symptoms Cardiovascular: reports: No Symptoms Respiratory: reports: No Symptoms Gastrointestinal: reports: No Symptoms Genitourinary: reports: Other (Leakage of fluid) Musculoskeletal: reports: No Symptoms Integumentary: reports: No Symptoms Neurological: reports: No Symptoms Endocrine: reports: No Symptoms Hematology/Lymphatic: reports: No Symptoms Pain Intensity: 0 Physical Exam - Maternity Constitutional: Yes: Well Nourished Eyes: Yes: Conjunctiva Clear HENT: Yes: Atraumatic Neck: Yes: Supple Cardiovascular: Yes: Regular Rate and Rhythm Lungs: Clear to auscultation Breast(s): Yes: WNL - Abdominal Exam/OB Number of Fetuses: Single Presentation: Vertex - Vaginal Exam/OB Vaginal Bleediing: No Amniotic Membrane Status: Ruptured Amniotic Fluid: Yes: Clear Presentation: Vertex/Position Station: -2 - Physical Exam Musculoskeletal: Yes: WNL Extremities: Yes: WNL Integumentary: Yes: WNL ...Motor Strength: WNL Psychiatric: Yes: Alert, Oriented Problem List - Problems (1) Spontaneous rupture of membranes Code(s): BYT9018 - Assessment/Plan 40 weeks gestation SROM Admit to L&D Consider cervidil induction
[2018-10-24] MEDS: DEXTROSE 5%-LACTATED RINGERS 1,000 ML IV SCH ×3 (02:00→18:00)
[2018-10-24 02:17] LABS: BASO % 0.4 % (0-2.0); EOS % 0.7 % (0-4.5); HEMATOCRIT 31.4 % (32.4-45.2); HEMOGLOBIN 10.7 GM/dL (10.7-15.3); LYMPH % 30.5 % (8-40); MCH 28.4 pg (25.7-33.7); MEAN CELL VOLUME 83.6 fl (80-96); MEAN PLT VOLUME 10.1 fl (7.5-11.1); MONO % 8.7 % (3.8-10.2); NEUT % 59.7 % (42.8-82.8); PLATELET COUNT 198 K/MM3 (134-434); RBC 3.76 M/mm3 (3.60-5.2); WHITE BLOOD COUNT 8.9 K/mm3 (4.0-10.0)
[2018-10-24 02:31] LABS: INR 0.91 (0.83-1.09); PROTHROMBIN TIME (PATIENT) 10.7 SEC (9.7-13.0)
[2018-10-24 02:35] LABS: ANION GAP 7 MMOL/L (8-16); BLOOD UREA NITROGEN 8 mg/dL (7-18); CALCIUM 8.6 mg/dL (8.5-10.1); CHLORIDE 107 mmol/L (98-107); CO2 22 mmol/L (21-32); CREATININE 0.4 mg/dL (0.55-1.3); GLUCOSE,RANDOM 72 mg/dL (74-106); POTASSIUM 3.9 mmol/L (3.5-5.1); SODIUM 136 mmol/L (136-145)
[2018-10-24 03:12] VITALS: BMI 25.4
[2018-10-24] MEDS ORDERED: TUBERCULIN PPD 5 TU/0.1ML SYRINGE (IN PATIENT USE ONLY) ID ONE (04:45)
--- NOTE | 2018-10-24 09:34 | PN ---
Progress Note (short form) - Note Progress Note: 9am cx 1 cm 50 vx -3 mr, clear fluid, fhr cat 1 tracing, irregular mild contraction, not felt by patient ,.pitocin vs cervidil discussed with patient, agreed to have cervidil, risks explain, cervidil inserted
[2018-10-24] MEDS ORDERED: DINOPROSTONE 10 MG VAGINAL SUPPOSITORY VG ONE (10:00)
[2018-10-24] MEDS ORDERED: BUTORPHANOL TARTRATE 2 MG/ML VIAL ONE ×2 (13:16→17:06)
[2018-10-24] MEDS ORDERED: PROMETHAZINE HCL 25 MG/1 ML VIAL ONE ×2 (13:17→17:06)
[2018-10-24] MEDS ORDERED: ALBUTEROL SO4 0.083% IH SOL 2.5 MG/3 ML VIAL.NEB. NEB PRN (13:27)
[2018-10-24] MEDS ORDERED: PROMETHAZINE HCL 25 MG/1 ML VIAL IVPUSH ONE (13:28)
[2018-10-24] MEDS ORDERED: BUTORPHANOL TARTRATE 1 MG/ML VIAL IVPUSH ONE (13:28)
--- NOTE | 2018-10-24 13:30 | PN ---
Progress Note (short form) - Note Progress Note: cx 2 cm , 80 vx -2 mr , fhr cat 1, contraction q i min, cervidil removed, if contraction space will start pitocin
[2018-10-24] MEDS ORDERED: OXYTOCIN 30 UNITS in 0.9% NS 30 UNIT/500 ML INFUS.BAG IVPB ONE (15:05)
[2018-10-24] MEDS: OXYTOCIN 30 UNITS in 0.9% NS 30 UNIT/500 ML INFUS.BAG IVPB SCH (15:35)
[2018-10-24] MEDS ORDERED: PROMETHAZINE HCL 25 MG/1 ML VIAL IVPB ONE ×2 (17:30→17:45)
[2018-10-24] MEDS ORDERED: BUTORPHANOL TARTRATE 2 MG/ML VIAL IVPB ONE ×2 (17:30→17:45)
[2018-10-24] MEDS ORDERED: ELECTROLYTE-148 SOLN 1,000 ML IV SCH (18:45)
[2018-10-24] MEDS ORDERED: BUPIVACAINE HCL/PF 0.25% (2.5MG/ML) 10 ML VIAL ONE (18:52)
[2018-10-24] MEDS ORDERED: LIDO 2%/EPI 1:200000 PRESRVFRE (20 ML SDVIAL) ONE ×2 (18:53→22:51)
[2018-10-24] MEDS ORDERED: FENTANYL/BUPIVACAINE/NS/PF - PCEA - 50 ML DISP.SYRIN EP ONE (18:54)
[2018-10-24] MEDS ORDERED: NALOXONE HCL 0.4 MG/ML VIAL IVPUSH PRN (19:18)
[2018-10-24] MEDS: FENTANYL/BUPIVACAINE/NS/PF - PCEA - 50 ML DISP.SYRIN EP SCH (19:30)
[2018-10-24] MEDS ORDERED: ePHEDrine SULFATE 50 MG/1 ML AMPULE ONE (19:59)
[2018-10-24] MEDS ORDERED: OXYTOCIN 20 UNITS in 0.9% NS 20 UNIT/1,000 ML INFUS.BAG IV ONE (20:28)
[2018-10-24] MEDS ORDERED: LIDOCAINE HCL 1% PRESERVATIVE FREE - 30ML VIAL ONE (21:52)
[2018-10-24] MEDS ORDERED: CEFAZOLIN 1 GM/D5W 2 GM/100 ML BAG ONE (22:22)
--- NOTE | 2018-10-24 22:24 | PN ---
Progress Note (short form) - Note Progress Note: has been pushing for 2 hours head large caput at 0 station, no descent with pushing , advised c/s, fhr cat 1, prolonged ROM
[2018-10-24] MEDS ORDERED: OXYTOCIN 10 UNITS/ML VIAL ONE (22:55)
[2018-10-24] MEDS ORDERED: ceFAZolin SODIUM 1 GM VIAL ONE (22:55)
[2018-10-24] MEDS ORDERED: PHENYLEPHRINE HCL 10 MG/1 ML SINGLE DOSE VIAL ONE (22:55)
[2018-10-24] MEDS ORDERED: ONDANSETRON 4 MG/2 ML VIAL IVPUSH PRN (23:12)
[2018-10-24] MEDS ORDERED: ACETAMINOPHEN 325 MG TABLET (FP) PO PRN (23:12)
[2018-10-24] MEDS ORDERED: IBUPROFEN 600 MG TABLET (FP) PO PRN (23:12)
[2018-10-24] MEDS ORDERED: KETAMINE HCL 500 MG/10 ML VIAL ONE (23:14)
[2018-10-24] MEDS ORDERED: MIDAZOLAM HCL 2 MG/2 ML SINGLE DOSE VIAL ONE (23:55)
[2018-10-25] MEDS ORDERED: OXYTOCIN 20 UNITS in 0.9% NS 20 UNIT/1,000 ML INFUS.BAG IV ONE ×3 (00:01→03:19)
[2018-10-25] MEDS ORDERED: diphenhydrAMINE HCL 25 MG CAPSULE (FP) PO PRN (00:13)
[2018-10-25] MEDS ORDERED: METHYLERGONOVINE MALEATE 0.2 MG/1 ML AMP IM PRN (00:13)
[2018-10-25] MEDS ORDERED: IBUPROFEN 800 MG/8 ML IJ IVPB PRN (00:13)
[2018-10-25] MEDS ORDERED: BENZOCAINE 20% 57 GM BOTTLE TP PRN (00:13)
[2018-10-25] MEDS ORDERED: WITCH HAZEL 50% (TUCKS) 40 PAD/JAR PAD TP PRN (00:13)
[2018-10-25] MEDS ORDERED: OXYTOCIN 20 UNITS in 0.9% NS 20 UNIT/1,000 ML INFUS.BAG IV SCH (00:15)
[2018-10-25] MEDS ORDERED: DEXTROSE 5%-LACTATED RINGERS 1,000 ML IV SCH (00:15)
[2018-10-25] MEDS ORDERED: ACETAMINOPHEN INJECTION 100 ML IVPB ONE (00:44)
--- NOTE | 2018-10-25 00:48 | OP ---
DATE OF OPERATION: 10/24/2018 PREOPERATIVE DIAGNOSIS: at term, prolonged rupture of membranes, failure of descent in the 2nd stage of labor, and large for gestational age. POSTOPERATIVE DIAGNOSIS: at term, prolonged rupture of membranes, failure of descent in the 2nd stage of labor, and large for gestational age. PROCEDURE: Primary low segment transverse section. SURGEON: Ranjit Stanton MD PATHOLOGIST: Aldair Jackson MD ANESTHESIA: Epidural. ANESTHESIOLOGIST: Neil Payne MD ESTIMATED BLOOD LOSS: 1200 mL DESCRIPTION OF OPERATION: Patient was taken to the operating room where adequate epidural anesthesia was noted. Abdomen and perineum were prepped and draped. Pfannenstiel abdominal skin incision was made. Abdominal wall was cut [id number] until the peritoneum was exposed and incised. Upon entry to the abdominal cavity, the lower uterine segment was identified and uterovesical fold was followed and bladder flap was established. Bladder was pushed down. A low transverse uterine incision was made. Amniotic sac was entered, clear fluid. Head was in occiput posterior position. Difficult to dislodge from the pelvis. Therefore, pressure was applied from the vagina and head was pushed up and delivered without any difficulty. The anterior and posterior shoulders were delivered without any difficulty. Live baby was delivered. Apgars 8 and 9. Placenta was delivered manually. The uterine cavity was cleaned of all remaining tissue. Uterine incision was closed in 2 layers; first layer with 0 Biosyn continuous suture and the second layer with 0 Biosyn imbricating the first layer. At the right section angle there was a small amount of bleeding, which was sutured with interrupted suture of 0 Biosyn and hemostasis was established. The bladder flap was closed with 0 Biosyn continuous suture. Both tubes and ovaries were checked and normal. No active bleeding was seen. All of the lap sponges and instrument counts were correct. Placenta was closed with 0 Biosyn continuous suture. Muscles were brought together with interrupted suture of 0 Biosyn. Fascia was closed with 0 Biosyn continuous suture. Subcutaneous fat with interrupted suture of 0 Biosyn and the skin was closed with marti. Patient tolerated the procedure well and left the OR in good condition. RANJIT STANTON M.D. [id number]
[2018-10-25 01:17] LABS: VENOUS PC02 59.8 mmHg (41-51); VENOUS PH 7.23 (7.31-7.41)
[2018-10-25 01:20] LABS: ARTERIAL BLD GAS O2 SATURATION 78.8 % (95-98); ARTERIAL BLOOD GAS BASE EXCESS -4.2 meq/l (-2-2); ARTERIAL BLOOD GAS PCO2 50.7 mmHg (35-45); ARTERIAL BLOOD GAS PO2 42.2 mmHg (80-105); ARTERIAL BLOOD GAS pH 7.28 (7.35-7.45)
[2018-10-25 01:22] LABS: VENOUS PO2 21.1 mmHg (30-40)
[2018-10-25] MEDS ORDERED: ACETAMINOPHEN 1000 MG/100 ML VIAL (NON FORMULARY) IVPB ONE (01:30)
[2018-10-25] MEDS: CEFAZOLIN 1 GM/D5W 1 GM/50 ML BAG IVPB SCH ×3 (06:16→21:55)
[2018-10-25] MEDS: ENOXAPARIN NA (PORCINE) 40 MG/0.4 ML DISP.SYRIN SQ SCH (10:51)
[2018-10-25 10:58] LABS: BASO % 0.2 % (0-2.0); HEMATOCRIT 22.3 % (32.4-45.2); HEMOGLOBIN 7.2 GM/dL (10.7-15.3); LYMPH % 8.9 % (8-40); MCH 27.5 pg (25.7-33.7); MCHC 32.5 g/dl (32.0-36.0); MEAN CELL VOLUME 84.7 fl (80-96); MEAN PLT VOLUME 9.8 fl (7.5-11.1); MONO % 7.1 % (3.8-10.2); NEUT % 83.8 % (42.8-82.8); PLATELET COUNT 178 K/MM3 (134-434); RBC 2.63 M/mm3 (3.60-5.2); RDW 15.2 % (11.6-15.6); WHITE BLOOD COUNT 14.8 K/mm3 (4.0-10.0)
--- NOTE | 2018-10-25 11:18 | PN ---
Progress Note (short form) - Note Progress Note: pod 1 s/p c/s doing well, feels tiered CBC, BMP 10/25/18 09:30 10/24/18 02:00 abdomen soft, no distension, no cva uterus firm, at umbilicus lochia mild, no excess vaginal bleeding seen no calf tenderness Last Vital Signs Temp Pulse Resp BP Pulse Ox 98.6 F 98 H 20 107/60 98 10/25/18 06:30 10/25/18 06:30 10/25/18 06:30 10/25/18 06:30 10/25/18 01:15 impression anemia, asymptomatic , no excess vaginal bleeding plan monitor VS, if symptomatic needs transfusion, discussed with patient repeat cbc day 3 ambulate, pain management
--- NOTE | 2018-10-25 13:58 | PN ---
Progress Note (short form) - Note Progress Note: POD #1 - s/p under spinal anesthesia with duramorph. VSS. Pt. doing well, resting comfortably in bed. No complaints. Good pain control. No apparent anesthetic complications noted. Continue current care.
[2018-10-25] MEDS: SIMETHICONE 80 MG TAB.CHEW (FP) PO PRN (15:33)
[2018-10-25] MEDS: ACETAMINOPHEN 325 MG TABLET (FP) PO PRN ×2 (15:33→19:33)
[2018-10-25] MEDS: oxyCODONE HCL 5 MG TABLET PO PRN ×2 (15:33→19:34)
[2018-10-25] MEDS: IBUPROFEN 600 MG TABLET (FP) PO PRN (18:19)
[2018-10-25] MEDS: BENZOCAINE 28 GM HEMORRHOIDAL OINTMENT PR PRN (18:21)
[2018-10-26] MEDS ORDERED: BISACODYL 10 MG SUPP.RECT PR PRN (00:13)
[2018-10-26] MEDS: ACETAMINOPHEN 325 MG TABLET (FP) PO PRN ×4 (04:57→20:54)
[2018-10-26] MEDS: SIMETHICONE 80 MG TAB.CHEW (FP) PO PRN ×3 (04:57→14:59)
[2018-10-26] MEDS: oxyCODONE HCL 5 MG TABLET PO PRN ×3 (04:57→14:58)
--- NOTE | 2018-10-26 05:51 | PN ---
Post Progress Note Post Day: 2 Type of Delivery: Primary C/S Vital Signs: Vital Signs Temperature 99.7 F H 10/26/18 02:00 Pulse Rate 99 H 10/26/18 02:00 Respiratory Rate 18 10/26/18 02:00 Blood Pressure 130/76 10/26/18 02:00 O2 Sat by Pulse Oximetry (%) 98 10/25/18 09:00 Uterus: Yes: Fundus below umbilicus Incision: Yes: Dressing dry and intact Abdomen/GI: Yes: Abdomen soft Lochia: Yes: Rubra Lochia, amount: Small Extremities: Yes: Calves non-tender Perineum: Yes: Intact Activity: Ambulating - Labs Labs: CBC WBC 14.8 K/mm3 (4.0-10.0) H 10/25/18 09:30 RBC 2.63 M/mm3 (3.60-5.2) L 10/25/18 09:30 Hgb 7.2 GM/dL (10.7-15.3) L 10/25/18 09:30 Hct 22.3 % (32.4-45.2) L D 10/25/18 09:30 MCV 84.7 fl (80-96) 10/25/18 09:30 MCH 27.5 pg (25.7-33.7) 10/25/18 09:30 MCHC 32.5 g/dl (32.0-36.0) 10/25/18 09:30 RDW 15.2 % (11.6-15.6) 10/25/18 09:30 Plt Count 178 K/MM3 (134-434) 10/25/18 09:30 MPV 9.8 fl (7.5-11.1) 10/25/18 09:30 Absolute Neuts (auto) 12.4 K/mm3 (1.5-8.0) H 10/25/18 09:30 Neutrophils % 83.8 % (42.8-82.8) H D 10/25/18 09:30 Lymphocytes % 8.9 % (8-40) D 10/25/18 09:30 Monocytes % 7.1 % (3.8-10.2) 10/25/18 09:30 Eosinophils % 0.0 % (0-4.5) D 10/25/18 09:30 Basophils % 0.2 % (0-2.0) 10/25/18 09:30 Nucleated RBC % 0 % (0-0) 10/25/18 09:30 Problem List - Problems (1) section wound complication Code(s): O90.9 - COMPLICATION OF THE PUERPERIUM, UNSPECIFIED Assessment/Plan 23yo s/p PLTCS, POD#2 Routine care OOB, ambulate Labs reviewed, anemia. H/H 12/01 (starting 05/15). Needs 2U PRBC, repeat CBC in AM Anticipate d/c to home by POD#4 Mony Kearns MD
[2018-10-26] MEDS: CEFAZOLIN 1 GM/D5W 1 GM/50 ML BAG IVPB SCH ×3 (06:08→23:11)
[2018-10-26 08:07] LABS: BASO % 0.2 % (0-2.0); EOS % 0.2 % (0-4.5); HEMATOCRIT 17.3 % (32.4-45.2); LYMPH % 10.4 % (8-40); MCH 27.2 pg (25.7-33.7); MCHC 32.6 g/dl (32.0-36.0); MEAN CELL VOLUME 83.6 fl (80-96); MEAN PLT VOLUME 9.4 fl (7.5-11.1); MONO % 7.6 % (3.8-10.2); NEUT % 81.6 % (42.8-82.8); PLATELET COUNT 148 K/MM3 (134-434); RBC 2.07 M/mm3 (3.60-5.2); RDW 15.3 % (11.6-15.6)
[2018-10-26 08:28] LABS: HEMOGLOBIN 5.6 GM/dL (10.7-15.3)
[2018-10-26] MEDS: ENOXAPARIN NA (PORCINE) 40 MG/0.4 ML DISP.SYRIN SQ SCH (10:00)
[2018-10-26 20:27] LABS: BASO % 0.1 % (0-2.0); HEMATOCRIT 24.9 % (32.4-45.2); HEMOGLOBIN 8.3 GM/dL (10.7-15.3); LYMPH % 11.1 % (8-40); MCH 28.5 pg (25.7-33.7); MCHC 33.3 g/dl (32.0-36.0); MEAN CELL VOLUME 85.6 fl (80-96); MEAN PLT VOLUME 8.8 fl (7.5-11.1); MONO % 7.4 % (3.8-10.2); NEUT % 81.4 % (42.8-82.8); PLATELET COUNT 180 K/MM3 (134-434); RBC 2.91 M/mm3 (3.60-5.2); RDW 14.5 % (11.6-15.6); WHITE BLOOD COUNT 13.5 K/mm3 (4.0-10.0)
[2018-10-26] MEDS: IBUPROFEN 600 MG TABLET (FP) PO PRN (20:53)
[2018-10-26] MEDS: FENTANYL/BUPIVACAINE/NS/PF - PCEA - 50 ML DISP.SYRIN EP SCH ×2 (21:12→22:49)
[2018-10-26] MEDS: OXYTOCIN 30 UNITS in 0.9% NS 30 UNIT/500 ML INFUS.BAG IVPB SCH (21:12)
[2018-10-26] MEDS ORDERED: GENTAMICIN 80 MG PREMIXED IVPB 80 MG/100 ML BAG IVPB SCH (22:45)
--- NOTE | 2018-10-26 22:46 | PN ---
Progress Note (short form) - Note Progress Note: had temp 100.3 with chills, received 2 units PRBC CBC, BMP 10/26/18 20:00 CBC, BMP 10/26/18 20:00 10/24/18 02:00 Last Vital Signs Temp Pulse Resp BP Pulse Ox 100.3 F H 109 H 20 130/93 98 10/26/18 22:03 10/26/18 22:03 10/26/18 22:03 10/26/18 22:03 10/25/18 09:00 r/o sepsis plan d/c ancef dtart amp, genta blood culture urine c/s cxr revaluate
[2018-10-26] MEDS ORDERED: AMPICILLIN - 2 GM in SODIUM CHLORIDE 100 ML IVPB SCH (23:00)
[2018-10-26] MEDS ORDERED: SODIUM CHLORIDE 100 ML IVPB ONE (23:23)
[2018-10-26] MEDS ORDERED: AMPICILLIN SODIUM 2 GM VIAL ONE (23:23)
[2018-10-26] MEDS: GENTAMICIN 80 MG PREMIXED IVPB 80 MG/100 ML BAG IVPB SCH (23:46)
[2018-10-27 00:26] LABS: URINE APPEARANCE Slightly Cloudy; URINE BILIRUBIN Negative (NEGATIVE); URINE COLOR Red; URINE GLUCOSE (UA) Negative (NEGATIVE); URINE KETONE 1+ (NEGATIVE); URINE LEUK ESTERASE Trace (NEGATIVE); URINE NITRITE Negative (NEGATIVE); URINE PROTEIN 1+ (NEGATIVE); URINE UROBILINOGEN 0.2 mg/dL (0.2-1.0)
[2018-10-27 01:16] LABS: URINE RBC 75-100 /hpf (0-4)
[2018-10-27] MEDS ORDERED: SODIUM CHLORIDE 100 ML IVPB ONE ×4 (05:06→23:59)
[2018-10-27] MEDS ORDERED: AMPICILLIN SODIUM 2 GM VIAL ONE ×4 (05:06→23:58)
[2018-10-27] MEDS: AMPICILLIN - 2 GM in SODIUM CHLORIDE 100 ML IVPB SCH ×3 (05:47→17:41)
[2018-10-27] MEDS: IBUPROFEN 600 MG TABLET (FP) PO PRN ×3 (07:41→22:35)
[2018-10-27] MEDS: SIMETHICONE 80 MG TAB.CHEW (FP) PO PRN ×3 (07:41→22:34)
[2018-10-27] MEDS: oxyCODONE HCL 5 MG TABLET PO PRN ×3 (07:42→22:35)
--- NOTE | 2018-10-27 07:45 | PN ---
Progress Note (short form) - Note Progress Note: pod 3 , s/p c/s , anemia, post op low grade temp. on aAmp, Genta CBC, BMP 10/26/18 20:00 10/24/18 02:00 Last Vital Signs Temp Pulse Resp BP Pulse Ox 98.9 F 97 H 18 120/74 98 10/27/18 05:51 10/27/18 05:51 10/27/18 05:51 10/27/18 05:51 10/25/18 09:00 abdomen soft, no distension , no cva incision dry, clean no calf tenderness lochia mild impression afebrile this am tachycardia improved plna cbc ,cmp this am cont.iv antibiotics
[2018-10-27 08:30] LABS: BASO % 0.2 % (0-2.0); EOS % 0.4 % (0-4.5); HEMATOCRIT 23.6 % (32.4-45.2); LYMPH % 11.3 % (8-40); MCH 28.3 pg (25.7-33.7); MCHC 33.8 g/dl (32.0-36.0); MEAN CELL VOLUME 83.8 fl (80-96); MEAN PLT VOLUME 8.5 fl (7.5-11.1); MONO % 8.1 % (3.8-10.2); PLATELET COUNT 198 K/MM3 (134-434); RBC 2.81 M/mm3 (3.60-5.2); RDW 15.3 % (11.6-15.6); WHITE BLOOD COUNT 12.1 K/mm3 (4.0-10.0)
[2018-10-27 08:57] LABS: ALBUMIN 1.7 g/dl (3.4-5.0); ALK PHOS 163 U/L (45-117); ANION GAP 7 MMOL/L (8-16); BILIRUBIN,TOTAL 0.4 mg/dL (0.2-1); BLOOD UREA NITROGEN 6 mg/dL (7-18); CALCIUM 7.4 mg/dL (8.5-10.1); CHLORIDE 108 mmol/L (98-107); CO2 25 mmol/L (21-32); CREATININE 0.4 mg/dL (0.55-1.3); GLUCOSE,RANDOM 80 mg/dL (74-106); POTASSIUM 3.7 mmol/L (3.5-5.1); SGOT/AST 25 U/L (15-37); SGPT/ALT 9 U/L (13-61); SODIUM 141 mmol/L (136-145); TOT PROT 4.8 g/dl (6.4-8.2)
[2018-10-27] MEDS: GENTAMICIN 80 MG PREMIXED IVPB 80 MG/100 ML BAG IVPB SCH ×2 (10:45→18:35)
[2018-10-27] MEDS: ENOXAPARIN NA (PORCINE) 40 MG/0.4 ML DISP.SYRIN SQ SCH (10:57)
[2018-10-27] MEDS ORDERED: SENNOSIDES/DOCUSATE COMBO (SENNA PLUS) TABLET (UD) PO PRN (22:00)
[2018-10-28] MEDS: AMPICILLIN - 2 GM in SODIUM CHLORIDE 100 ML IVPB SCH ×2 (00:12→06:26)
[2018-10-28] MEDS: GENTAMICIN 80 MG PREMIXED IVPB 80 MG/100 ML BAG IVPB SCH ×2 (02:15→09:47)
[2018-10-28] MEDS ORDERED: AMPICILLIN SODIUM 2 GM VIAL ONE (05:59)
[2018-10-28] MEDS ORDERED: SODIUM CHLORIDE 100 ML IVPB ONE (05:59)
[2018-10-28] MEDS: IBUPROFEN 600 MG TABLET (FP) PO PRN (06:27)
[2018-10-28] MEDS: BENZOCAINE 28 GM HEMORRHOIDAL OINTMENT PR PRN (06:27)
[2018-10-28] MEDS: ACETAMINOPHEN 325 MG TABLET (FP) PO PRN (06:27)
[2018-10-28] MEDS: SIMETHICONE 80 MG TAB.CHEW (FP) PO PRN (06:27)
--- NOTE | 2018-10-28 08:48 | PN ---
Post Progress Note - Subjective Subjective: Pt feeling well. Ambulating. Pain controlled Post Day: 4 Type of Delivery: Primary C/S Vital Signs: Vital Signs Temperature 98.0 F 10/28/18 06:35 Pulse Rate 78 10/28/18 06:35 Respiratory Rate 20 10/28/18 06:35 Blood Pressure 120/73 10/28/18 01:10 O2 Sat by Pulse Oximetry (%) 98 10/25/18 09:00 Breast Exam: Yes: Soft Uterus: Yes: Fundus Firm Incision: Yes: Marti intact (marti removed; steri strips applied) Abdomen/GI: Yes: Abdomen soft Lochia: Yes: Rubra Lochia, amount: Small Extremities: Yes: Calves non-tender Activity: Ambulating - Labs Labs: CBC WBC 12.1 K/mm3 (4.0-10.0) H 10/27/18 08:00 RBC 2.81 M/mm3 (3.60-5.2) L 10/27/18 08:00 Hgb 8.0 GM/dL (10.7-15.3) L 10/27/18 08:00 Hct 23.6 % (32.4-45.2) L 10/27/18 08:00 MCV 83.8 fl (80-96) 10/27/18 08:00 MCH 28.3 pg (25.7-33.7) 10/27/18 08:00 MCHC 33.8 g/dl (32.0-36.0) 10/27/18 08:00 RDW 15.3 % (11.6-15.6) 10/27/18 08:00 Plt Count 198 K/MM3 (134-434) 10/27/18 08:00 MPV 8.5 fl (7.5-11.1) 10/27/18 08:00 Absolute Neuts (auto) 9.7 K/mm3 (1.5-8.0) H 10/27/18 08:00 Neutrophils % 80.0 % (42.8-82.8) 10/27/18 08:00 Lymphocytes % 11.3 % (8-40) 10/27/18 08:00 Monocytes % 8.1 % (3.8-10.2) 10/27/18 08:00 Eosinophils % 0.4 % (0-4.5) D 10/27/18 08:00 Basophils % 0.2 % (0-2.0) 10/27/18 08:00 Nucleated RBC % 0 % (0-0) 10/27/18 08:00 Problem List - Problems (1) delivery delivered Assessment/Plan: Pt PPD#4 s/p c/s doing well stable for discharge home f/u in clinic in 1 week for wound check pelvic rest Dr. Klein Code(s): O82 - ENCOUNTER FOR DELIVERY WITHOUT INDICATION
[2018-10-28] MEDS: ENOXAPARIN NA (PORCINE) 40 MG/0.4 ML DISP.SYRIN SQ SCH (09:47)
[2018-10-28 10:20] VITALS: BP 124/86; PULSE 76; TEMP 97.8
--- NOTE | 2018-10-29 20:48 | DS ---
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 Vital Signs: Vital Signs Temperature 97.8 F 10/28/18 09:00 Pulse Rate 76 10/28/18 09:00 Respiratory Rate 20 10/28/18 09:00 Blood Pressure 124/86 10/28/18 09:00 O2 Sat by Pulse Oximetry (%) 98 10/25/18 09:00 Constitutional: Yes: Well Nourished, No Distress, Calm Eyes: Yes: WNL, Conjunctiva Clear, EOM Intact HENT: Yes: WNL, Atraumatic, Normocephalic Neck: Yes: WNL, Supple, Trachea Midline Cardiovascular: Yes: WNL, Regular Rate and Rhythm Respiratory: Yes: WNL, Regular, CTA Bilaterally Gastrointestinal: Yes: WNL ...Rectal Exam: Yes: WNL Renal/: Yes: WNL ....Post : Yes: Uterus firm, Uterus non-tender, Slight lochia rubra Breast(s): Yes: WNL Musculoskeletal: Yes: WNL Extremities: Yes: WNL Integumentary: Yes: WNL Wound/Incision: Yes: Clean/Dry, Well Approximated, Sutures Intact Neurological: Yes: WNL, Alert, Oriented ...Motor Strength: WNL Psychiatric: Yes: WNL, Alert, Oriented Labs: CBC, BMP 10/27/18 08:00 10/27/18 08:00 Delivery - Delivery Section: Primary (no complication), Low Flap Transverse Type of Anesthesia: Epidural Episiotomy/Laceration: None EBL (cc): 1,000 Delivery, Single - Stages of Labor Date 1st Stage Initiatied: 10/24/18 Time 1st Stage Initiated: 14:00 Date 2nd Stage Initiated: 10/24/18 Time 2nd Stage Initiated: 19:00 Date of Delivery: 10/24/18 Time of Delivery: 23:25 Time Placenta Delivered: 23:27 Placenta: Yes: Expressed - Condition of Neurodiagnostic Technician/Noc Engineer Present: Yes Name: Fan Dubois Gender: Male Weight: 9 lb 2 oz Position: Left, OA Total Hours ROM (Hrs/Mins): 22 HOURS/55 MINUTES - 1 Minute Total Score: 9 5 Minutes Total Score: 9 - Feeding Plan Initial Plan: Elected not to breastfeed exclusively throughout hospitalization Discharge Summary Reason For Visit: LABOR Procedures: Principal: primary LST c/s Hospital Course: chorioamnionitis, anemia, s/p 2 units prbc, post op antibiotics Condition: Stable - Instructions Diet, Activity, Other Instructions: Regular Diet Take your iron twice daily Referrals: Bryn Menezes MD [Staff Physician] - Disposition: HOME - Home Medications Comprehensive Discharge Medication List: Ambulatory Orders Albuterol 0.083% Nebulizer Yolette [Ventolin 0.083% Nebulizer Soln -] 1 neb NEB Q6H PRN #30 vial 07/04/18 No122/Iron/Folic Acid [ Multi Tablet] 1 each PO DAILY 07/04/18 Ferrous Sulfate [Feosol] 325 mg PO BID #60 tablet 10/26/18 Ibuprofen 600 mg PO Q6H PRN #30 tablet 10/26/18
--- NOTE | 2018-10-30 18:37 | PATH ---
Surgical Pathology Report Patient Name: JAMES HOLLINS Med. Rec. 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 Specimen(s) Received PLACENTA Clinical History 23-year-old , history of asthma, failure to progress, prolonged rupture of membranes Final Diagnosis PLACENTA, SECTION: 592 G THIRD TRIMESTER PLACENTA WITH TRIVASCULAR UMBILICAL CORD AND MILD ACUTE CHORIOAMNIONITIS. Electronically Signed Ledy Lindquist M.D. Gross Description The specimen is received fresh labeled placenta and is a 592 gram, 20.5 x 19.5 x 2.6 cm. placenta with attached membranes and umbilical cord. The attached membranes are stokes, translucent with focal opacities and insert marginally. The umbilical cord measures 12 cm. in length and averages 1.2 cm. in diameter. The cord inserts eccentrically, 4.5 cm. to the nearest margin. No true knots or strictures are identified. Cut surface of the umbilical cord reveals 3 vessels. The surface is pardo-blue with minimal fibrin deposition and appropriate caliber vessels. The maternal surface is red-brown with focal defects. Sectioning reveals red-brown, spongy parenchyma. No lesions are identified. Dining Host sections are submitted in three cassettes as follows: 1- membrane rolls and umbilical cord; 2-3- full thickness sections of placenta. 10/28/2018 [facility]28/2018
== END 2018-10-28 11:50 | disposition home or self-care (01) | DRG 540 ==
LOC: JLDR 01:20 → J3W 10-25 03:52
PROVIDERS: ADMIT Obstetrics & Gynecology; ATTEND Obstetrics & Gynecology
PROC: 10D00Z1 Extraction of Products of Conception, Low, Open Approach (ICD-10-PCS; principal; 2018-10-24)
DX: O36.63X0 Maternal care for excessive fetal growth, third trimester, not applicable or unspecified (principal); O63.1 Prolonged second stage (of labor); Z3A.40 40 weeks gestation of pregnancy; Z37.0 Single live birth
CPT/HCPCS: 36415; 36430; 36511; 36600; 71045-TC-FY; 80048; 80053; 81003; 82803; 85025; 85610; 85730; 86593; 86850; 86900; 86901; 86922; 87040; 87086; 88307-TC; J0131; P9038; P9051; P9058

== ENCOUNTER 2021-03-12 20:39 | Emergency (ER) | payer OTHER ==
[2021-03-12 20:59] VITALS: BP 105/61; PULSE 63; TEMP 98.6; BMI 19.3
[2021-03-12] MEDS ORDERED: LIDOCAINE PATCH REMOVAL MC SCH (22:00)
[2021-03-12] MEDS ORDERED: LIDOCAINE 5% TOPICAL PATCH TP ONE (22:40)
[2021-03-12] MEDS ORDERED: KETOROLAC TROMETHAMINE 60 MG/2 ML VIAL IM ONE (22:40)
[2021-03-12] MEDS ORDERED: METHOCARBAMOL 500 MG TABLET PO ONE (22:40)
[2021-03-12] MEDS ORDERED: KETOROLAC TROMETHAMINE 30 MG/1 ML VIAL ONE (23:00)
[2021-03-12] MEDS ORDERED: LIDOCAINE 5% TOPICAL PATCH ONE (23:00)
[2021-03-12] MEDS ORDERED: METHOCARBAMOL 500 MG TABLET ONE (23:00)
== END 2021-03-13 00:08 | disposition home or self-care (01) ==
LOC: JER 20:39
DX: M54.9 Dorsalgia, unspecified (principal); Z76.0 Encounter for issue of repeat prescription
CPT/HCPCS: 99283-25

== ENCOUNTER 2021-11-18 17:12 | Emergency (ER) | payer OTHER ==
[2021-11-18 17:33] VITALS: TEMP 98.2; BMI 18.8
[2021-11-18] MEDS ORDERED: diazePAM 5 MG TABLET PO ONE (18:35)
[2021-11-18] MEDS ORDERED: KETOROLAC TROMETHAMINE 30 MG/1 ML VIAL IM ONE (18:36)
[2021-11-18] MEDS ORDERED: diazePAM 5 MG TABLET ONE (18:37)
[2021-11-18] MEDS ORDERED: KETOROLAC TROMETHAMINE 30 MG/1 ML VIAL ONE (18:37)
[2021-11-18 22:06] VITALS: BP 104/65; PULSE 83
== END 2021-11-18 22:06 | disposition home or self-care (01) ==
LOC: JERFT 17:12
PROC: 3E0233Z Introduction of Anti-inflammatory into Muscle, Percutaneous Approach (ICD-10-PCS; principal; 2021-11-18)
DX: M54.50 Low back pain, unspecified (principal); W10.9XXA Fall (on) (from) unspecified stairs and steps, initial encounter
CPT/HCPCS: 72100-TC-FY; 84703; 99284-25

== ENCOUNTER 2022-10-15 17:46 | Emergency (ER) | payer OTHER ==
[2022-10-15 17:59] VITALS: TEMP 98; BMI 18.6
[2022-10-15] MEDS ORDERED: IBUPROFEN 600 MG TABLET (FP) PO ONE ×2 (18:55→19:08)
[2022-10-15 20:12] VITALS: BP 95/64; PULSE 100; RESP 20
== END 2022-10-15 20:44 | disposition home or self-care (01) ==
LOC: JER 17:46 → JERFT 17:46
DX: M79.601 Pain in right arm (principal); W08.XXXA Fall from other furniture, initial encounter
CPT/HCPCS: 73030-TC-RT-FY; 73070-TC-RT-FY; 73090-TC-RT-FY; 99285-25